=== PATIENT | female | born 1960 | race Caucasian/White ===

== ENCOUNTER 2019-04-18 19:57 | Inpatient (IN) ==
[2019-04-18 21:25] LABS: Mean Corpuscular Hgb Conc 33.1 g/dL (32-36)
[2019-04-18 21:40] LABS: Alanine Aminotransferase 63 U/L (12-78); Albumin Level 3.5 gm/dl (3.4-5.0); Aspartate Aminotransferase 86 U/L (15-37); BUN Creatinine Ratio 11.5 (10-20); Blood Urea Nitrogen 8 mg/dl (7-18); Calcium 9.3 mg/dl (8.5-10.1); Carbon Dioxide 26 mmol/L (21-32); Chloride 105 mmol/L (98-107); Est GFR (African American) 112.9; Est GFR (Non-African American) 97.4; Glucose 162 mg/dl (70-99); Lipase 84 U/L (73-393); Potassium 3.8 mmol/L (3.5-5.1); Sodium 137 mmol/L (136-145)
[2019-04-18 21:43] LABS: Albumin Globulin Ratio 0.7 (0.9-2); Alkaline Phosphatase 194 U/L (45-117); Bilirubin,Total 1.5 mg/dl (0.2-1); Globulin 5.2 gm/dl (2.5-4.0); Total Protein 8.7 gm/dl (6.4-8.2)
[2019-04-18] MEDS ORDERED: METOCLOPRAMIDE HCL INJ 5 MG/ML 2 ML VIAL IV STA (21:43)
[2019-04-18] MEDS ORDERED: GI COCKTAIL ED USE PO ONE (21:43)
[2019-04-18] MEDS ORDERED: DiphenhydrAMINE HCL 50 MG/ML VIAL IV STA ×2 (21:43→23:31)
[2019-04-18] MEDS ORDERED: SODIUM CHLORIDE 0.9% 1000ML 1,000 ML IV SCH (21:45)
[2019-04-18 21:46] LABS: Appearance Urine Clear (Clear); Bacteria Urine Automated Negative (Negative); Bilirubin Urine Negative (Negative); Blood Urine 1+ (Negative); Color Urine Yellow; Epithelial Cell Urine Auto >30 /lpf (0-5); Glucose Urine UA Trace (Negative); Ketones Urine Negative (Negative); Leukocyte Esterase Urine Negative (Negative); Nitrite Urine Negative (Negative); Protein Urine Negative (Negative); Specific Gravity Urine 1.019 (1.000-1.030); Urobilinogen Urine Negative (Negative)
[2019-04-18 21:58] LABS: INR 1.2 (0.9-1.1); Partial Thromboplastin Ratio 1.1; Partial Thromboplastin Time 29.6 Seconds (21.0-31.0); Prothrombin Time 12.1 Seconds (9.0-12.0)
[2019-04-18 22:06] LABS: Anisocytosis Present; Basophils # (auto) 0.02 K/uL (0-0.2); Basophils % (auto) 0.2 %; Echinocytes 1+; Eosinophils # (auto) 0.23 K/uL (0-0.5); Eosinophils % (auto) 1.8 %; Hematocrit (blood only) 37.5 % (37-47); Hemoglobin 12.4 g/dL (12.0-16.0); Immature Granulocytes # (auto) 0.02 K/uL (0.00-0.02); Immature Granulocytes % (auto) 0.2 %; Lymphocytes # (auto) 1.15 K/uL (1.2-3.4); Lymphocytes % (auto) 9.2 %; Mean Corpuscular Hemoglobin 27.1 pg (25-34); Mean Corpuscular Volume 81.9 fL (80-100); Monocytes # (auto) 0.84 K/uL (0.11-0.59); Monocytes % (auto) 6.7 %; Neutrophils # (auto) 10.27 K/uL (1.4-6.5); Neutrophils % (auto) 81.9 %; Platelet Count 103 K/uL (130-400); Platelet Estimate Decreased (Normal); RDW Coefficient of Variation 22.8 % (11.5-14.5); RDW Standard Deviation 67.8 fL (36.4-46.3); Red Blood Count 4.58 M/uL (4.2-5.4); White Blood Count 12.53 K/uL (4.8-10.8)
[2019-04-18 22:07] LABS: Magnesium 1.8 mg/dl (1.8-2.4); Troponin I < 0.015 ng/ml (0-0.045)
--- NOTE | 2019-04-18 22:14 | XRay Report ---
XR chest 1V portable HISTORY: 58 years-old Female n/v, weak acute nausea and vomiting with weakness COMPARISON: None available TECHNIQUE: Normal AP view of the chest FINDINGS: Cardiac silhouette is mildly enlarged. No pneumothorax, large pleural effusion, focal airspace consol idation or overt pulmonary edema. Hazy increased density of the lung bases likely secondary to patien t body habitus. Degenerative changes of the shoulders and spine. ORIF images of the right scapula. IMPRESSION: No acute process. The above report was generated using voice recognition software. It may contain grammatical, syntax o r spelling errors. Electronically signed by: Abimael Bazan M.D. 04/18/2019 10:13 PM
[2019-04-18] MEDS ORDERED: IOVERSOL 100ml IV PRN (22:35)
--- NOTE | 2019-04-18 22:57 | CT Scan Report ---
ABDOMEN AND PELVIS CT WITH IV CONTRAST CT DOSE: 2018.55 mGy.cm HISTORY: Acute mid abdominal pain with nausea and vomiting mid abd pain TECHNIQUE: Multiaxial CT images of the abdomen and pelvis were performed following the IV administrat ion of 93 cc of Optiray 320, A dose lowering technique was utilized adhering to the principles of AL EDGARDO. COMPARISON STUDY: None. FINDINGS: Lung bases are generally clear. No pneumatosis or pneumoperitoneum. The imaged inferior cardiac chamb ers are unremarkable. Spleen is enlarged measuring up to 16 cm in length. Cirrhotic morphology of the liver. No focal hepatic mass lesion or intrahepatic biliary ductal dilation. Moderate distention of the gallbladder. No cholelithiasis, choledocholithiasis or biliary ductal dilation. Pancreas and adre nal glands are unremarkable. Indeterminate intermediate attenuating 1.5 cm lesion of the interpolar r ight kidney, Hounsfield unit of 15. Indeterminate intermediate attenuating 9 mm lesion of the interpo lar left kidney posteriorly with probable cyst of the inferior pole left kidney. No urolith or obstru ctive uropathy. Mild urinary bladder wall thickening. Peripherally calcified 1.2 cm aneurysm of the r ight renal artery is noted on image 170 of series 3. Calcified uterine fibroids. Aorta and IVC are un remarkable. Nonspecific prominent and enlarged periportal and precaval lymph nodes. Upper abdominal varices include periesophageal varices with esophageal wall thickening. Recanalizatio n of the umbilical vein. Mildly dilated fluid-filled loops of small bowel are seen within the upper a bdomen measuring up to 3.2 cm transversely. Nondilated fluid-filled loops of small bowel are seen wit hin the lower abdomen and pelvis. Decompressed distal colon. Mild fecal retention. Terminal ileum and appendix are unremarkable. No transition point identified. As above the mid mesentery. Soft tissues are unremarkable. Bones appear intact. Degenerative changes of the pelvis, spine. IMPRESSION: 1. Prominent and mildly dilated loops of fluid-filled small bowel within the upper abdomen are noted without transition point suggestive of ileus/enteritis with low-grade small bowel obstruction also wi thin the differential. 2. No pneumatosis or pneumoperitoneum. 3. Cirrhotic liver disease with stigmata of portal venous hypertension including periesophageal and u pper abdominal varices with splenomegaly. 4. 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 5. Additional findings as above. Electronically signed by: Abimael Bazan M.D. 04/18/2019 10:56 PM
[2019-04-18] MEDS ORDERED: MoRPHine SULFATE 4 MG/ML 1 ML CARP\\VIAL IV STA (23:31)
--- NOTE | 2019-04-19 01:44 | Emergency Department Note ---
History of Present Illness General Chief complaint: Vomiting Stated complaint: VOMIT FOR 3 HOURS, DEHYDRATION History of Present Illness Maximum Pain Intensity: 6 This 58-year-old presents to the ER complaining of nausea, vomiting and upper abdominal pain who is a history of cirrhosis with varices nonalcoholic Location: Upper abdomen Quality: Uncomfortable Severity: Moderate Duration: One day Timing: One day ago Context: Symptoms persisted and patient came in Modifying factors: better with nothing; worse with activity Patient is in town visiting. She is from the [facility]. Patient denies chest pain, dyspnea, fevers, back pain, diarrhea. Patient states last week she was admitted to [facility] and received blood transfusions. Her platelets were 10,000. Home Medications Home Medications Medication Instructions Recorded Confirmed Type albuterol sulfate [Proventil HFA] 2 puff INHALATION Q4H PRN 04/18/19 04/18/19 History amitriptyline 50 mg PO HS 04/18/19 04/18/19 History cholecalciferol (vitamin D3) 0 unit PO DAILY 04/18/19 04/18/19 History [Vitamin D3] coenzyme Q10 [CoQ-10] 0 mg PO DAILY 04/18/19 04/18/19 History cyanocobalamin (vitamin B-12) 1,000 mcg PO DAILY 04/18/19 04/18/19 History [Vitamin B-12] ferrous sulfate 325 mg PO Q2D 04/18/19 04/18/19 History fluticasone propion-salmeterol 2 puff INHALATION Q12H 04/18/19 04/18/19 History [Advair HFA] fluticasone propionate [Flonase 2 spray INTRANASAL BID PRN 04/18/19 04/18/19 History Allergy Relief] gabapentin See Rx Instructions .ROUTE .COMPLEX 04/18/19 04/18/19 History insulin glargine U-300 conc 20 unit SUBCUT QAM 04/18/19 04/18/19 History [Toujeo SoloStar U-300 Insulin] insulin glargine U-300 conc 45 unit SUBCUT HS 04/18/19 04/18/19 History [Toujeo SoloStar U-300 Insulin] insulin lispro [Humalog KwikPen 50 unit SUBCUT AC 04/18/19 04/18/19 History Insulin] lisinopril 10 mg PO DAILY 04/18/19 04/18/19 History lorazepam 0.5 mg PO BID PRN 04/18/19 04/18/19 History magnesium oxide 800 mg PO BID 04/18/19 04/18/19 History metformin 1,000 mg PO BIDM 04/18/19 04/18/19 History metoclopramide HCl 5 mg PO TID PRN 04/18/19 04/18/19 History nadolol 10 mg PO BID 04/18/19 04/18/19 History pantoprazole 40 mg PO QAM 04/18/19 04/18/19 History polyethylene glycol 3350 17 g PO DAILY PRN 04/18/19 04/18/19 History rosuvastatin 10 mg PO HS 04/18/19 04/18/19 History semaglutide [Ozempic] 1 mg SUBCUT WK 04/18/19 04/18/19 History sucralfate 1 g PO ACHS 04/18/19 04/18/19 History tramadol 50 mg PO BID PRN 04/18/19 04/18/19 History Allergies Allergy/AdvReac Type Severity Reaction Status Date / Time No Known Allergies Allergy Verified 04/18/19 22:17 Past Med/Surg History Medical History Cirrhosis Diabetes High blood pressure Social History Feels Safe at Home: Yes Smoking Status: Former smoker Review of Systems All systems reviewed & are unremarkable except as noted in HPI & below Physical Exam Vital Signs Vital Signs - 24 hr 04/18/19 20:05 04/18/19 21:58 04/18/19 22:45 Temperature 37.0 C Temperature Source Oral Sepsis Recent Fever Within 48 Hours No Sepsis Action Taken by Nursing No Action Required Pulse Rate 118 H Pulse Rate [Apical] 112 H Pulse Rate from SpO2 Sensor Respiratory Rate 20 20 Respiratory Effort / Characteristics Non-Labored Respiratory Depth Normal Blood Pressure 128/84 Blood Pressure [Left Arm] 162/58 H Blood Pressure Mean 98 Blood Pressure Mean [Left Arm] 92 Pulse Oximetry 96 97 97 Oxygen Delivery Method Room Air Room Air Room Air 04/18/19 23:00 04/18/19 23:30 04/19/19 00:00 Temperature Temperature Source Sepsis Recent Fever Within 48 Hours Sepsis Action Taken by Nursing Pulse Rate 147 H 116 H 114 H Pulse Rate [Apical] Pulse Rate from SpO2 Sensor 110 H 116 H 114 H Respiratory Rate 15 17 25 H Respiratory Effort / Characteristics Respiratory Depth Blood Pressure 162/118 H 140/118 H 155/75 H Blood Pressure [Left Arm] Blood Pressure Mean 132 125 101 Blood Pressure Mean [Left Arm] Pulse Oximetry 94 95 95 Oxygen Delivery Method Room Air Room Air Room Air 04/19/19 00:30 04/19/19 01:00 Temperature Temperature Source Sepsis Recent Fever Within 48 Hours Sepsis Action Taken by Nursing Pulse Rate 113 H Pulse Rate [Apical] Pulse Rate from SpO2 Sensor 117 H 113 H Respiratory Rate 23 20 Respiratory Effort / Characteristics Respiratory Depth Blood Pressure 150/73 H 151/77 H Blood Pressure [Left Arm] Blood Pressure Mean 98 101 Blood Pressure Mean [Left Arm] Pulse Oximetry 96 96 Oxygen Delivery Method Room Air Room Air VITALS: Vitals are noted on the nurse's note and reviewed by myself. Vital signs tachycardic GENERAL: White female vomiting, in no acute distress, nondiaphoretic, well- developed well-nourished. SKIN: The skin was without rashes, erythema, edema, or bruising. There is no tenting of the skin. Capillary reflex less than 2 seconds. HEAD: Normocephalic atraumatic. EARS: External auditory canals clear, tympanic membranes pearly burt without erythema or effusion bilaterally. EYES: Pupils equal round and reactive to light and accommodation. Conjunctivae without injection, sclerae without icterus. Extraocular movements intact. NOSE: Patent, turbinates without inflammation or discharge. MOUTH: Mucous membranes moist. Pharynx without erythema or exudate. Uvula midline. Airway patent. Tongue does not deviate. NECK: Supple without nuchal rigidity. No lymphadenopathy. No thyromegaly. Cervical spine is nontender. No JVD. HEART: Regular rate and rhythm LUNGS: Clear to auscultation bilaterally without wheezes, rales or rhonchi. No retractions or accessory muscle use. ABDOMEN: Positive bowel sounds x 4. Normal tympanic percussion. Soft, tender to palpation upper abdomen, without masses or organomegaly. No guarding or rebound tenderness. No CVA tenderness MUSCULOSKELETAL: No muscle atrophy, erythema, or edema noted. NEURO: Patient was alert and oriented to person place and time. Normal sensation to light and sharp touch. No focal neurological deficits. Course Administered Medications Ioversol (Optiray 320 100ml) 93 ml IV ONCE PRN PRN Reason: Interaction Checking Stop: 04/22/19 22:34 Last Admin: 04/18/19 22:35 Dose: 93 ml Documented by: [id number] Discontinued Medications Al Hydrox/Mg Hydrox/Simethicone () 1 dose PO ONE ONE Stop: 04/18/19 21:44 Last Admin: 04/18/19 22:32 Dose: 1 dose Documented by: [id number] Diphenhydramine HCl (Benadryl) 25 mg IV NOW STA Stop: 04/18/19 21:44 Last Admin: 04/18/19 21:56 Dose: 25 mg Documented by: [id number] Diphenhydramine HCl (Benadryl) 12.5 mg IV NOW STA Stop: 04/18/19 23:32 Last Admin: 04/18/19 23:46 Dose: 12.5 mg Documented by: [id number] Sodium Chloride (Nss 1000ml) 1,000 mls @ 999 mls/hr IV .Q1H1M SAI Stop: 04/18/19 22:45 Last Infusion: 04/18/19 23:34 Dose: 0 mls/hr Documented by: [id number] Admin: 04/18/19 21:56 Dose: 999 mls/hr Documented by: [id number] Metoclopramide HCl (Reglan) 10 mg IV NOW STA Stop: 04/18/19 21:44 Last Admin: 04/18/19 21:56 Dose: 10 mg Documented by: [id number] Morphine Sulfate (Morphine Sulfate) 4 mg IV NOW STA Stop: 04/18/19 23:32 Last Admin: 04/18/19 23:44 Dose: 4 mg Documented by: [id number] Medical Decision Making Medical Records Attestation: I reviewed the patient's medical records. Home Medications Current Medication List: was personally reviewed by me Laboratory Data Attestation: I reviewed the patient's lab results. Result diagrams: 04/18/19 21:05 04/18/19 21:05 Lab Results 04/18/19 04/18/19 04/18/19 Range/Units 20:15 21:05 21:05 WBC 12.53 H (4.8-10.8) K/uL RBC 4.58 (4.2-5.4) M/uL Hgb 12.4 (12.0-16.0) g/dL Hct 37.5 (37-47) % MCV 81.9 (80-100) fL MCH 27.1 (25-34) pg MCHC 33.1 (32-36) g/dL RDW Std Deviation 67.8 H (36.4-46.3) fL RDW Coeff of [place] 22.8 H (11.5-14.5) % Plt Count 103 L (130-400) K/uL MPV 10.0 (7.4-10.4) fL Immature Gran % (Auto) 0.2 % Neut % (Auto) 81.9 % Lymph % (Auto) 9.2 % [place] % (Auto) 6.7 % Eos % (Auto) 1.8 % Baso % (Auto) 0.2 % Immature Gran # (Auto) 0.02 (0.00-0.02) K/uL Neut # (Auto) 10.27 H (1.4-6.5) K/uL Lymph # (Auto) 1.15 L (1.2-3.4) K/uL [place] # (Auto) 0.84 H (0.11-0.59) K/uL Eos # (Auto) 0.23 (0-0.5) K/uL Baso # (Auto) 0.02 (0-0.2) K/uL Platelet Estimate Decreased L (Normal) Anisocytosis Present Echinocytes 1+ PT (9.0-12.0) Seconds INR (0.9-1.1) APTT (21.0-31.0) Seconds PTT Ratio Sodium 137 (136-145) mmol/L Potassium 3.8 (3.5-5.1) mmol/L Chloride 105 (98-107) mmol/L Carbon Dioxide 26 (21-32) mmol/L Anion Gap 7.0 (3-11) BUN 8 (7-18) mg/dl Creatinine 0.66 (0.6-1.2) mg/dl Est Cr Clr Drug Dosing Not Reportable Est GFR ( Amer) 112.9 Est GFR (Non-Af Amer) 97.4 BUN/Creatinine Ratio 11.5 (10-20) Glucose 162 H (70-99) mg/dl Calcium 9.3 (8.5-10.1) mg/dl Magnesium 1.8 (1.8-2.4) mg/dl Total Bilirubin 1.5 H (0.2-1) mg/dl AST 86 H (15-37) U/L ALT 63 (12-78) U/L Alkaline Phosphatase 194 H (45-117) U/L Troponin I < 0.015 (0-0.045) ng/ml Total Protein 8.7 H (6.4-8.2) gm/dl Albumin 3.5 (3.4-5.0) gm/dl Globulin 5.2 H (2.5-4.0) gm/dl Albumin/Globulin Ratio 0.7 L (0.9-2) Lipase 84 (73-393) U/L Urine Color Urine Appearance (Clear) Urine pH (4.5-7.5) Ur Specific [place] (1.000-1.030) Urine Protein (Negative) Urine Glucose (UA) (Negative) Urine Ketones (Negative) Urine Blood (Negative) Urine Nitrite (Negative) Urine Bilirubin (Negative) Urine Urobilinogen (Negative) Ur Leukocyte Esterase (Negative) Urine WBC (Auto) (0-5) /hpf Urine RBC (Auto) (0-4) /hpf U Hyaline Cast (Auto) (0-5) /lpf U Epithel Cells (Auto) (0-5) /lpf Urine Bacteria (Auto) (Negative) 04/18/19 04/18/19 Range/Units 21:05 21:05 WBC (4.8-10.8) K/uL RBC (4.2-5.4) M/uL Hgb (12.0-16.0) g/dL Hct (37-47) % MCV (80-100) fL MCH (25-34) pg MCHC (32-36) g/dL RDW Std Deviation (36.4-46.3) fL RDW Coeff of [place] (11.5-14.5) % Plt Count (130-400) K/uL MPV (7.4-10.4) fL Immature Gran % (Auto) % Neut % (Auto) % Lymph % (Auto) % [place] % (Auto) % Eos % (Auto) % Baso % (Auto) % Immature Gran # (Auto) (0.00-0.02) K/uL Neut # (Auto) (1.4-6.5) K/uL Lymph # (Auto) (1.2-3.4) K/uL [place] # (Auto) (0.11-0.59) K/uL Eos # (Auto) (0-0.5) K/uL Baso # (Auto) (0-0.2) K/uL Platelet Estimate (Normal) Anisocytosis Echinocytes PT 12.1 H (9.0-12.0) Seconds INR 1.2 H (0.9-1.1) APTT 29.6 (21.0-31.0) Seconds PTT Ratio 1.1 Sodium (136-145) mmol/L Potassium (3.5-5.1) mmol/L Chloride (98-107) mmol/L Carbon Dioxide (21-32) mmol/L Anion Gap (3-11) BUN (7-18) mg/dl Creatinine (0.6-1.2) mg/dl Est Cr Clr Drug Dosing Est GFR ( Amer) Est GFR (Non-Af Amer) BUN/Creatinine Ratio (10-20) Glucose (70-99) mg/dl Calcium (8.5-10.1) mg/dl Magnesium (1.8-2.4) mg/dl Total Bilirubin (0.2-1) mg/dl AST (15-37) U/L ALT (12-78) U/L Alkaline Phosphatase (45-117) U/L Troponin I (0-0.045) ng/ml Total Protein (6.4-8.2) gm/dl Albumin (3.4-5.0) gm/dl Globulin (2.5-4.0) gm/dl Albumin/Globulin Ratio (0.9-2) Lipase (73-393) U/L Urine Color Yellow Urine Appearance Clear (Clear) Urine pH 7.0 (4.5-7.5) Ur Specific [place] 1.019 (1.000-1.030) Urine Protein Negative (Negative) Urine Glucose (UA) Trace H (Negative) Urine Ketones Negative (Negative) Urine Blood 1+ H (Negative) Urine Nitrite Negative (Negative) Urine Bilirubin Negative (Negative) Urine Urobilinogen Negative (Negative) Ur Leukocyte Esterase Negative (Negative) Urine WBC (Auto) 1-5 (0-5) /hpf Urine RBC (Auto) 5-10 H (0-4) /hpf U Hyaline Cast (Auto) 1-5 (0-5) /lpf U Epithel Cells (Auto) >30 H (0-5) /lpf Urine Bacteria (Auto) Negative (Negative) Imaging Data Attestation: I personally reviewed and interpreted this imaging study as fol lows: MDM Narrative Prior records/ancillary studies reviewed. Triage Nursing notes reviewed. The patient's history was concerning for abdominal pain. Differential diagnosis: Etiologies such as appendicitis, diverticulitis, PUD, biliary pathology, UTI, pancreatitis, obstruction, mesenteric ischemia, aortic pathology, infections, inflammatory bowel disease, renal colic, as well as others were entertained. Physical examination findings: As above. ER treatment provided: IV fluids, Reglan, Benadryl, morphine, Bentyl On reassessment the patient felt better. Diagnostics interpreted by me: ECG: Normal sinus, normal intervals, no acute ST-T wave changes. Impression sinus tachycardia interpreted by myself Ordered for tachycardia I think arrhythmia is unlikely. EKG shows normal sinus rhythm with no interval abnormalities such as QT prolongation or WPW. There are no findings to suggest Brugada syndrome. Cardiac monitoring in the emergency department reveals no tachycardic or bradycardic dysrhythmia. Hypertrophic cardiomyopathy was considered but there are no clear historical elements pointing toward this. EKG is not suggestive. The QRS voltage is not extremely large and there are no suggestive Q waves. The labs revealed leukocytosis, stable H&H Imaging studies: ABDOMEN AND PELVIS CT WITH IV CONTRAST CT DOSE: 2018.55 mGy.cm HISTORY: Acute mid abdominal pain with nausea and vomiting mid abd pain TECHNIQUE: Multiaxial CT images of the abdomen and pelvis were performed following the IV administration of 93 cc of Optiray 320, A dose lowering technique was utilized adhering to the principles of ALARA. COMPARISON STUDY: None. FINDINGS: Lung bases are generally clear. No pneumatosis or pneumoperitoneum. The imaged inferior cardiac chambers are unremarkable. Spleen is enlarged measuring up to 16 cm in length. Cirrhotic morphology of the liver. No focal hepatic mass lesion or intrahepatic biliary ductal dilation. Moderate distention of the gallbladder. No cholelithiasis, choledocholithiasis or biliary ductal dilation. Pancreas and adrenal glands are unremarkable. Indeterminate intermediate attenuating 1.5 cm lesion of the interpolar right kidney, Hounsfield unit of 15. Indeterminate intermediate attenuating 9 mm lesion of the interpolar left kidney posteriorly with probable cyst of the inferior pole left kidney. No urolith or obstructive uropathy. Mild urinary bladder wall thickening. 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 Calcified uterine fibroids. Aorta and IVC are unremarkable. Nonspecific prominent and enlarged periportal and precaval lymph nodes. Upper abdominal varices include periesophageal varices with esophageal wall t hickening. Recanalization of the umbilical vein. Mildly dilated fluid-filled loops of small bowel are seen within the upper abdomen measuring up to 3.2 cm transversely. Nondilated fluid-filled loops of small bowel are seen within the lower abdomen and pelvis. Decompressed distal colon. Mild fecal retention. Terminal ileum and appendix are unremarkable. No transition point identified. As above the mid mesentery. Soft tissues are unremarkable. Bones appear intact. Degenerative changes of the pelvis, spine. IMPRESSION: 1. Prominent and mildly dilated loops of fluid-filled small bowel within the upper abdomen are noted without transition point suggestive of ileus/enteritis with low-grade small bowel obstruction also within the differential. 2. No pneumatosis or pneumoperitoneum. 3. Cirrhotic liver disease with stigmata of portal venous hypertension including periesophageal and upper abdominal varices with splenomegaly. 4. 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 5. Additional findings as above. Electronically signed by: Abimael Bazan M.D. 04/18/2019 10:56 PM XR chest 1V portable HISTORY: 58 years-old Female n/v, weak acute nausea and vomiting with weakness COMPARISON: None available TECHNIQUE: Normal AP view of the chest FINDINGS: Cardiac silhouette is mildly enlarged. No pneumothorax, large pleural effusion, focal airspace consolidation or overt pulmonary edema. Hazy increased density of the lung bases likely secondary to patient body habitus. Degenerative changes of the shoulders and spine. ORIF images of the right scapula. IMPRESSION: No acute process. The above report was generated using voice recognition software. It may contain grammatical, syntax or spelling errors. Electronically signed by: Abimael Bazan M.D. Consultation: A consultation was placed with the hospitalist, Dr. Lee. The case was discussed and diagnostics were reviewed. The patient was evaluated in the ER for further treatment. Exam and history seem consistent with intractable nausea vomiting with possible early bowel obstruction. Patient is agreeable treatment plan of admission. Medicine was consulted. She was medicated as above. She felt slightly better. Records were obtained from [place] and reviewed. This is given to the admitting team. By the evaluation outlined above emergent etiologies such as appendicitis, diverticulitis, PUD, biliary pathology, UTI, pancreatitis, mesenteric ischemia, aortic pathology, infections, inflammatory bowel disease, renal colic, as well as others were deemed relatively unlikely. The pt informed about the findings as listed above. All questions were answered and pleased with the treatment. Case reviewed with my attending The chart was completed utilizing [employer] voice recognition software. Grammatical errors, random word insertions, pronoun errors, and incomplete sentences are an occassional consequence of this system due to software limita tions, ambient noise, and hardware issues. Any formal questions or concerns about the content, text, or information contained within the body of this dictation should be directly addressed to the physician insurance account assistant for clarification. Impression & Plan Intractable vomiting, Abdominal pain Discharge Plan Visit Data Chief Complaint: Vomiting Stated Complaint: VOMIT FOR 3 HOURS, DEHYDRATION ED Provider: Saurav Rivers ED Midlevel Provider: Keli Hess Discharge Problem: Intractable vomiting, Abdominal pain Patient Disposition: Being Evaluated by Hospitalist Condition: Fair Forms Stand Alone Forms: My [facility] Prescriptions Prescriptions: No Action sucralfate 1 gram Tablet 1 g PO ACHS RF: 0 lisinopril 20 mg Tablet 10 mg PO DAILY RF: 0 gabapentin 400 mg Capsule See Rx Instructions .ROUTE .COMPLEX RF: 0 cyanocobalamin (vitamin B-12) [Vitamin B-12] 1,000 mcg Tablet 1,000 mcg PO DAILY RF: 0 tramadol 50 mg Tablet 50 mg PO BID PRN (Reason: Pain, Moderate) RF: 0 amitriptyline 50 mg Tablet 50 mg PO HS RF: 0 nadolol 20 mg Tablet 10 mg PO BID RF: 0 lorazepam 0.5 mg Tablet 0.5 mg PO BID PRN (Reason: Anxiety) RF: 0 pantoprazole 40 mg Tablet,Delayed Release (Dr/Ec) 40 mg PO QAM RF: 0 ferrous sulfate 325 mg (65 mg iron) Tablet 325 mg PO Q2D RF: 0 metformin 1,000 mg Tablet 1,000 mg PO BIDM RF: 0 polyethylene glycol 3350 17 gram/dose Powder 17 g PO DAILY PRN (Reason: Constipation) RF: 0 albuterol sulfate [Proventil HFA] 90 mcg/actuation Hfa Aerosol Inhaler 2 puff INHALATION Q4H PRN (Reason: Shortness Of Breath Or Wheezing) RF: 0 fluticasone propionate [Flonase Allergy Relief] 50 mcg/actuation [place],S uspension 2 spray INTRANASAL BID PRN (Reason: Rhinitis) RF: 0 metoclopramide HCl 10 mg Tablet 5 mg PO TID PRN (Reason: Nausea) RF: 0 cholecalciferol (vitamin D3) [Vitamin D3] 1,000 unit Capsule PO DAILY RF: 0 insulin lispro [Humalog KwikPen Insulin] 100 unit/mL Insulin Pen 50 unit SUBCUT AC RF: 0 rosuvastatin 10 mg Tablet 10 mg PO HS RF: 0 Advair HFA 230-21 mcg/actuation Hfa Aerosol Inhaler 2 puff INHALATION Q12H RF: 0 Toujeo SoloStar U-300 Insulin 300 unit/mL (1.5 mL) Insulin Pen 45 unit SUBCUT HS RF: 0 Toujeo SoloStar U-300 Insulin 300 unit/mL (1.5 mL) Insulin Pen 20 unit SUBCUT QAM RF: 0 Ozempic 1 mg/dose (2 mg/1.5 mL) Pen Injector 1 mg SUBCUT WK RF: 0 magnesium oxide 400 mg magnesium Tablet 800 mg PO BID RF: 0 coenzyme Q10 [CoQ-10] 100 mg Capsule PO DAILY RF: 0 Referrals Referrals: PCP,NO [Primary Care Provider] -
[2019-04-19] MEDS ORDERED: ONDANSETRON INJ 2 MG/ML 2 ML VIAL ONE (02:22)
[2019-04-19] MEDS: TRAMADOL HCL 50 MG TABLET PO PRN ×2 (02:39→09:35)
[2019-04-19] MEDS ORDERED: CARBOHYDRATES FOR HYPOGLYCEMIA PO PRN (03:52)
[2019-04-19] MEDS ORDERED: ALBUTEROL HFA 8 GM INHALER INH PRN (03:52)
[2019-04-19] MEDS ORDERED: FLUTICASONE PROPIONATE NA SPR 16 GM BTL PRN (03:52)
[2019-04-19] MEDS ORDERED: DEXTROSE 50% 50 ML SYRINGE IV PRN (03:52)
[2019-04-19] MEDS ORDERED: GLUCOSE 40% GEL 15 GM TUBE PO PRN (03:52)
[2019-04-19] MEDS ORDERED: MoRPHine SULFATE 2 MG/ML CARP IV PRN (03:52)
[2019-04-19] MEDS ORDERED: GLUCAGON FOR INJ 1 MG VIAL SQ PRN (03:52)
[2019-04-19] MEDS ORDERED: GLUCOSE 10 TABS/TUBE PO PRN (03:52)
[2019-04-19] MEDS ORDERED: Nursing to Pharmacy Communication ONE ×2 (03:57→07:06)
[2019-04-19] MEDS: HEPARIN SOD 5,000 UNIT/0.5 ML VIAL SQ SCH ×3 (05:42→20:17)
[2019-04-19] MEDS ORDERED: INSULIN ASPART 100 UNITS/ML 3 ML PEN SC SCH ×2 (06:00→07:30)
--- NOTE | 2019-04-19 06:00 | History & Physical Report ---
Date of Service April 19, 2019 Assessment & Plan (1) Enteritis: Enteritis versus low-grade small bowel obstruction/intractable nausea, vomiting and abdominal pain- NPO with sips and essential medications. Zofran 4 mg IV every 6 hours PRN. Famotidine 20 mg IV every 12 hours. Tramadol 50 mg p.o. every 6 hours PRN moderate pain. Morphine sulfate 2 mg IV every 4 hours as needed severe pain... Try to minimize. Consult general surgery. 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 Plan will be to address primary issue of enteritis versus low-grade SBO, and return her to her care of her longtime physicians. Present on Admission?: Yes (6) Portal venous hypertension: See above Present on Admission?: Yes (7) Esophageal varices in cirrhosis: See above Present on Admission?: Yes (8) Splenomegaly: See above Present on Admission?: Yes (9) COPD (chronic obstructive pulmonary disease): Continue usual treatment with Proventil HFA, Advair HFA, Flonase. Present on Admission?: Yes (10) Insulin-requiring or dependent type II diabetes mellitus: Hold Toujeo, metformin and Ozempic. Placed on Accu-Cheks before meals and at bedtime with NovoLog coverage per scale. Present on Admission?: Yes (11) Hypertension: Continue nadolol 10 mg p.o. twice daily with hold parameters Present on Admission?: Yes (12) Peripheral neuropathy: Continue amitriptyline and gabapentin when she is able to take p.o. Present on Admission?: Yes (13) Hyperlipidemia: Hold rosuvastatin until able to take p.o. Present on Admission?: Yes (14) Anxiety: Change lorazepam to IV Present on Admission?: Yes (15) B12 deficiency: Hold supplement Present on Admission?: Yes History of Present Illness Chief Complaint: The patient presents to the emergency department with upper abdominal pain, nausea, and vomiting. 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 Patient is presently visiting [place], and reports that she had been hospitalized about 1 and half weeks ago related to her liver dysfunction. She does have a follow-up appointment with her physicians next week. Allergies Allergy/AdvReac Type Severity Reaction Status Date / Time No Known Allergies Allergy Verified 04/18/19 22:17 Home Medications Home Medications Medication Instructions Recorded Confirmed Type albuterol sulfate [Proventil HFA] 2 puff INHALATION Q4H PRN 04/18/19 04/18/19 History amitriptyline 50 mg PO HS 04/18/19 04/18/19 History cholecalciferol (vitamin D3) 0 unit PO DAILY 04/18/19 04/18/19 History [Vitamin D3] coenzyme Q10 [CoQ-10] 0 mg PO DAILY 04/18/19 04/18/19 History cyanocobalamin (vitamin B-12) 1,000 mcg PO DAILY 04/18/19 04/18/19 History [Vitamin B-12] ferrous sulfate 325 mg PO Q2D 04/18/19 04/18/19 History fluticasone propion-salmeterol 2 puff INHALATION Q12H 04/18/19 04/18/19 History [Advair HFA] fluticasone propionate [Flonase 2 spray INTRANASAL BID PRN 04/18/19 04/18/19 H istory Allergy Relief] gabapentin See Rx Instructions .ROUTE .COMPLEX 04/18/19 04/18/19 History insulin glargine U-300 conc 20 unit SUBCUT QAM 04/18/19 04/18/19 History [Toujeo SoloStar U-300 Insulin] insulin glargine U-300 conc 45 unit SUBCUT HS 04/18/19 04/18/19 History [Toujeo SoloStar U-300 Insulin] insulin lispro [Humalog KwikPen 50 unit SUBCUT AC 04/18/19 04/18/19 History Insulin] lisinopril 10 mg PO DAILY 04/18/19 04/18/19 History lorazepam 0.5 mg PO BID PRN 04/18/19 04/18/19 History magnesium oxide 800 mg PO BID 04/18/19 04/18/19 History metformin 1,000 mg PO BIDM 04/18/19 04/18/19 History metoclopramide HCl 5 mg PO TID PRN 04/18/19 04/18/19 History nadolol 10 mg PO BID 04/18/19 04/18/19 History pantoprazole 40 mg PO QAM 04/18/19 04/18/19 History polyethylene glycol 3350 17 g PO DAILY PRN 04/18/19 04/18/19 History rosuvastatin 10 mg PO HS 04/18/19 04/18/19 History semaglutide [Ozempic] 1 mg SUBCUT WK 04/18/19 04/18/19 History sucralfate 1 g PO ACHS 04/18/19 04/18/19 History tramadol 50 mg PO BID PRN 04/18/19 04/18/19 History Past Med/Surg History Medical History Cirrhosis Diabetes High blood pressure Social History Preferred Language: Cymro Communication Ability: Effective 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 Beliefs That Will Affect Care: None Current Living Situation: Spouse and Family Other Information That Helps Us Care for You: No Feels Safe at Home: Yes Safety Concerns: Feels Safe At This Time Smoking Status: Former smoker Hx Alcohol Use: No Hx Substance Use: No Review of Systems Review of Systems: The patient denies chest pain, palpitations, shortness of breath, dyspnea on exertion, cough, lower extremity swelling, sore throat, blood in urine or stool, dysuria, urinary frequency or urgency, lightheadedness, dizziness, headache, memory loss, loss of consciousness, imbalance, focal weakness, numbness or tingling in arms or legs, back or neck pain, or night sweats. The review of systems is otherwise negative other than for that already noted above, and at least 10 systems have been reviewed. Physical Exam Physical Exam: The patient is awake, alert and oriented 3, normocephalic and atraumatic, lying in bed and in mild distress secondary to abdominal pain. HEENT--PERRL, EOMI, mucous membranes and oropharynx dry. Neck--supple. No JVD. No bruits. Thyroid normal, trachea midline, no adenopathy. Heart--normal S1 and S2. No murmurs, rubs or gallops. Lungs--clear bilaterally, no respiratory distress, no accessory muscle use. Abdomen--normal bowel sounds and soft. Nontender. Nondistended. Morbid obesity. Extremities--no cyanosis or clubbing. 1+ bilateral pretibial pitting edema. Dermatologic--normal skin turgor, normal color. Neurologic--cranial nerves II through XII grossly intact. Rheumatologic--exam limited by body habitus Psychiatric--normal affect. Results & Data Vital Signs (Past 12 Hours) Vital Signs Temp Pulse Pulse Resp BP BP BP 04/19/19 03:37 98.2 F 106 H 18 127/73 04/19/19 03:00 107 H 24 168/72 H 04/19/19 02:30 111 H 20 163/59 H 04/19/19 02:00 109 H 17 167/67 H 04/19/19 01:30 110 H 21 141/69 H 04/19/19 01:00 113 H 20 151/77 H 04/19/19 00:30 23 150/73 H 04/19/19 00:00 114 H 25 H 155/75 H 04/18/19 23:30 116 H 17 140/118 H 04/18/19 23:00 147 H 15 162/118 H 04/18/19 22:45 112 H 20 162/58 H 04/18/19 21:58 04/18/19 20:05 98.6 F 118 H 20 128/84 Pulse Ox 04/19/19 03:37 96 04/19/19 03:00 94 04/19/19 02:30 94 04/19/19 02:00 95 04/19/19 01:30 95 04/19/19 01:00 96 04/19/19 00:30 96 04/19/19 00:00 95 04/18/19 23:30 95 04/18/19 23:00 94 04/18/19 22:45 97 04/18/19 21:58 97 04/18/19 20:05 96 Laboratory Results Laboratory Results WBC 12.53 K/uL (4.8-10.8) H 04/18/19 21:05 RBC 4.58 M/uL (4.2-5.4) 04/18/19 21:05 Hgb 12.4 g/dL (12.0-16.0) 04/18/19 21:05 Hct 37.5 % (37-47) 04/18/19 21:05 MCV 81.9 fL (80-100) 04/18/19 21:05 MCH 27.1 pg (25-34) 04/18/19 21:05 MCHC 33.1 g/dL (32-36) 04/18/19:05 RDW Std Deviation 67.8 fL (36.4-46.3) H 04/18/19 21:05 RDW Coeff of [place] 22.8 % (11.5-14.5) H 04/18/19 21:05 Plt Count 103 K/uL (130-400) L 04/18/19 21:05 MPV 10.0 fL (7.4-10.4) 04/18/19 21:05 Immature Gran % (Auto) 0.2 % 04/18/19 21:05 Neut % (Auto) 81.9 % 04/18/19 21:05 Lymph % (Auto) 9.2 % 04/18/19 21:05 [place] % (Auto) 6.7 % 04/18/19 21:05 Eos % (Auto) 1.8 % 04/18/19:05 Baso % (Auto) 0.2 % 04/18/19:05 Immature Gran # (Auto) 0.02 K/uL (0.00-0.02) 04/18/19 21:05 Neut # (Auto) 10.27 K/uL (1.4-6.5) H 04/18/19 21:05 Lymph # (Auto) 1.15 K/uL (1.2-3.4) L 04/18/19 21:05 [place] # (Auto) 0.84 K/uL (0.11-0.59) H 04/18/19 21:05 Eos # (Auto) 0.23 K/uL (0-0.5) 04/18/19 21:05 Baso # (Auto) 0.02 K/uL (0-0.2) 04/18/19 21:05 Platelet Estimate Decreased (Normal) L 04/18/19 21:05 Anisocytosis Present 04/18/19 21:05 Echinocytes 1+ 04/18/19 21:05 PT 12.1 Seconds (9.0-12.0) H 04/18/19 21:05 INR 1.2 (0.9-1.1) H 04/18/19 21:05 APTT 29.6 Seconds (21.0-31.0) 04/18/19 21:05 PTT Ratio 1.1 04/18/19 21:05 Sodium 137 mmol/L (136-145) 04/18/19 21:05 Potassium 3.8 mmol/L (3.5-5.1) 04/18/19 21:05 Chloride 105 mmol/L (98-107) 04/18/19 21:05 Carbon Dioxide 26 mmol/L (21-32) 04/18/19 21:05 Anion Gap 7.0 (3-11) 04/18/19 21:05 BUN 8 mg/dl (7-18) 04/18/19 21:05 Creatinine 0.66 mg/dl (0.6-1.2) 04/18/19 21:05 Est Cr Clr Drug Dosing Not Reportable 04/18/19 21:05 Est GFR ( Amer) 112.9 04/18/19 21:05 Est GFR (Non-Af Amer) 97.4 04/18/19 21:05 BUN/Creatinine Ratio 11.5 (10-20) 04/18/19 21:05 Glucose 162 mg/dl (70-99) H 04/18/19 21:05 POC Glucose 148 (70-99) H 04/19/19 05:30 Calcium 9.3 mg/dl (8.5-10.1) 04/18/19 21:05 Magnesium 1.8 mg/dl (1.8-2.4) 04/18/19 20:15 Total Bilirubin 1.5 mg/dl (0.2-1) H 04/18/19 21:05 AST 86 U/L (15-37) H 04/18/19 21:05 ALT 63 U/L (12-78) 04/18/19 21:05 Alkaline Phosphatase 194 U/L (45-117) H 04/18/19 21:05 Troponin I < 0.015 ng/ml (0-0.045) 04/18/19 20:15 Total Protein 8.7 gm/dl (6.4-8.2) H 04/18/19 21:05 Albumin 3.5 gm/dl (3.4-5.0) 04/18/19 21:05 Globulin 5.2 gm/dl (2.5-4.0) H 04/18/19 21:05 Albumin/Globulin Ratio 0.7 (0.9-2) L 04/18/19 21: Lipase 84 U/L (73-393) 04/18/19 21:05 Urine Color Yellow 04/18/19 21:05 Urine Appearance Clear (Clear) 04/18/19 21:05 Urine pH 7.0 (4.5-7.5) 04/18/19 21:05 Ur Specific [place] 1.019 (1.000-1.030) 04/18/19 21:05 Urine Protein Negative (Negative) 04/18/19 21:05 Urine Glucose (UA) Trace (Negative) H 04/18/19 21:05 Urine Ketones Negative (Negative) 04/18/19 21:05 Urine Blood 1+ (Negative) H 04/18/19 21:05 Urine Nitrite Negative (Negative) 04/18/19 21:05 Urine Bilirubin Negative (Negative) 04/18/19 21:05 Urine Urobilinogen Negative (Negative) 04/18/19 21:05 Ur Leukocyte Esterase Negative (Negative) 04/18/19 21:05 Urine WBC (Auto) 1-5 /hpf (0-5) 04/18/19 21:05 Urine RBC (Auto) 5-10 /hpf (0-4) H 04/18/19 21:05 U Hyaline Cast (Auto) 1-5 /lpf (0-5) 04/18/19 21:05 U Epithel Cells (Auto) >30 /lpf (0-5) H 04/18/19 21:05 Urine Bacteria (Auto) Negative (Negative) 04/18/19 21:05 Diagnostic Findings [facility], [place] [phone] CT Scan Report Patient: CAM PORTILLOmit Date: 04/18/19 MR#: [id number]: [id number] Acct ID:[id number]: [facility]: 1960[facility] Zip: [place] [address] Age: 58Location: ED Sex: F Room/Bed: Att Phy:Diagnosis: VOMIT FOR 3 HOURS, DEHYDRATION Radha Phy: PCP,NOService Date: 04/18/19 Fam Phy:Interpreting Phy: Moisés Bazan Admit Phy: Ordering Phy: Keli Hess .WANDA cc: ~ ABDOMEN AND PELVIS CT WITH IV CONTRAST CT DOSE: 2018.55 mGy.cm HISTORY: Acute mid abdominal pain with nausea and vomiting mid abd pain TECHNIQUE: Multiaxial CT images of the abdomen and pelvis were performed following the IV administration of 93 cc of Optiray 320, A dose lowering technique was utilized adhering to the principles of ALARA. COMPARISON STUDY: None. FINDINGS: Lung bases are generally clear. No pneumatosis or pneumoperitoneum. The imaged inferior cardiac chambers are unremarkable. Spleen is enlarged measuring up to 16 cm in length. Cirrhotic morphology of the liver. No focal hepatic mass lesion or intrahepatic biliary ductal dilation. Moderate distention of the gallbladder. No cholelithiasis, choledocholithiasis or biliary ductal dilation. Pancreas and adrenal glands are unremarkable. Indeterminate intermediate attenuating 1.5 cm lesion of the interpolar right kidney, Hounsfield unit of 15. Indeterminate intermediate attenuating 9 mm lesion of the interpolar left kidney posteriorly with probable cyst of the inferior pole left kidney. No urolith or obstructive uropathy. Mild urinary bladder wall thickening. 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 Calcified uterine fibroids. Aorta and IVC are unremarkable. Nonspecific prominent and enlarged periportal and precaval lymph nodes. Upper abdominal varices include periesophageal varices with esophageal wall thickening. Recanalization of the umbilical vein. Mildly dilated fluid-filled loops of small bowel are seen within the upper abdomen measuring up to 3.2 cm transversely. Nondilated fluid-filled loops of small bowel are seen within the lower abdomen and pelvis. Decompressed distal colon. Mild fecal retention. Terminal ileum and appendix are unremarkable. No transition point identified. As above the mid mesentery. Soft tissues are unremarkable. Bones appear intact. Degenerative changes of the pelvis, spine. IMPRESSION: 1. Prominent and mildly dilated loops of fluid-filled small bowel within the upper abdomen are noted without transition point suggestive of ileus/enteritis with low-grade small bowel obstruction also within the differential. 2. No pneumatosis or pneumoperitoneum. 3. Cirrhotic liver disease with stigmata of portal venous hypertension including periesophageal and upper abdominal varices with splenomegaly. 4. 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 5. Additional findings as above. Electronically signed by: Abimael Bazan M.D. 04/18/2019 10:56 PM Dictated: 04/18/192245 Transcribed: 04/18/192245 [place], [place] [phone] XRay Report Patient: CAM PORTILLO AAdshayne Date: 04/18/19 MR#: [id number]: [id number] Acct ID:[id number]: Date: 1960[facility] Zip: [place] [address] Age: 58Location: ED Sex: F Room/Bed: Att Phy:Diagnosis: VOMIT FOR 3 HOURS, DEHYDRATION Radha Phy: PCP,NOService Date: 04/18/19 Fam Phy:Interpreting Phy: Moisés Bazan Admit Phy: Ordering Phy: Keli Hess .WANDA cc: ~ XR chest 1V portable HISTORY: 58 years-old Female n/v, weak acute nausea and vomiting with weakness COMPARISON: None available TECHNIQUE: Normal AP view of the chest FINDINGS: Cardiac silhouette is mildly enlarged. No pneumothorax, large pleural effusion, focal airspace consolidation or overt pulmonary edema. Hazy increased density of the lung bases likely secondary to patient body habitus. Degenerative changes of the shoulders and spine. ORIF images of the right scapula. IMPRESSION: No acute process. The above report was generated using voice recognition software. It may contain grammatical, syntax or spelling errors. Electronically signed by: Abimael Bazan M.D. 04/18/2019 10:13 PM Dictated: 04/18/192211 Transcribed: 04/18/192211 Code Status & VTE Plan Code Status Full code VTE Prophylaxis Plan VTE Prophylaxis will be ordered: Yes PG Care Time/CCT Total # of Minutes Spent Total Time Spent with Patient: Total time spent is greater than 50% in coordination of care (as documented) at patient's floor/unit and/or counseling patient:
--- NOTE | 2019-04-19 07:12 | Surgery Consultation ---
Date of Consultation April 19, 2019 Assessment & Plan (1) Enteritis: Patient is admitted with nausea vomiting and abdominal pain she appears to be more enteritis than Bowel obstruction-he has very mildly dilated small bowel with mild thickening and no transition point He does have evidence of cirrhosis with portal hypertension and associated varices It does not appear she requires surgical intervention, we will try her on some clear liquids Continue with rehydration and monitor her electrolytes History of Present Illness Attending Physician: Denilson Beatty MD Asked to see the patient with possible partial small bowel obstruction but more likely enteritis She presented to the emergency room with nausea vomiting and upper abdominal pain Appears to be dehydrated weakness/fatigue Patient was recently admitted to [facility] in [place] with severe thrombocytopenia platelet count of 9000 He required medication and transfusion, current platelet count is 103,000 She also has a history of nonalcoholic cirrhosis portal hypertension and varices Allergies Allergy/AdvReac Type Severity Reaction Status Date / Time No Known Allergies Allergy Verified 04/18/19 22:17 Home Medications Home Medications Medication Instructions Recorded Confirmed Type albuterol sulfate [Proventil HFA] 2 puff INHALATION Q4H PRN 04/18/19 04/18/19 History amitriptyline 50 mg PO HS 04/18/19 04/18/19 History cholecalciferol (vitamin D3) 0 unit PO DAILY 04/18/19 04/18/19 History [Vitamin D3] coenzyme Q10 [CoQ-10] 0 mg PO DAILY 04/18/19 04/18/19 History cyanocobalamin (vitamin B-12) 1,000 mcg PO DAILY 04/18/19 04/18/19 History [Vitamin B-12] ferrous sulfate 325 mg PO Q2D 04/18/19 04/18/19 History fluticasone propion-salmeterol 2 puff INHALATION Q12H 04/18/19 04/18/19 History [Advair HFA] fluticasone propionate [Flonase 2 spray INTRANASAL BID PRN 04/18/19 04/18/19 History Allergy Relief] gabapentin See Rx Instructions .ROUTE .COMPLEX 04/18/19 04/18/19 History insulin glargine U-300 conc 20 unit SUBCUT QAM 04/18/19 04/18/19 History [Toumelindao SoloStar U-300 Insulin] insulin glargine U-300 conc 45 unit SUBCUT HS 04/18/19 04/18/19 History [Toudev[place] AmbrizoStar U-300 Insulin] insulin lispro [Humalog KwikPen 50 unit SUBCUT AC 04/18/19 04/18/19 History Insulin] lisinopril 10 mg PO DAILY 04/18/19 04/18/19 History lorazepam 0.5 mg PO BID PRN 04/18/19 04/18/19 History magnesium oxide 800 mg PO BID 04/18/19 04/18/19 History metformin 1,000 mg PO BIDM 04/18/19 04/18/19 History metoclopramide HCl 5 mg PO TID PRN 04/18/19 04/18/19 History nadolol 10 mg PO BID 04/18/19 04/18/19 History pantoprazole 40 mg PO QAM 04/18/19 04/18/19 History polyethylene glycol 3350 17 g PO DAILY PRN 04/18/19 04/18/19 History rosuvastatin 10 mg PO HS 04/18/19 04/18/19 History semaglutide [Ozempic] 1 mg SUBCUT WK 04/18/19 04/18/19 History sucralfate 1 g PO ACHS 04/18/19 04/18/19 History tramadol 50 mg PO BID PRN 04/18/19 04/18/19 History Patient History Medical History Cirrhosis Diabetes High blood pressure Social History Preferred Language: Slovenian Communication Ability: Effective 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 Beliefs That Will Affect Care: None Current Living Situation: Spouse and Family Other Information That Helps Us Care for You: No Feels Safe at Home: Yes Safety Concerns: Feels Safe At This Time Smoking Status: Former smoker Hx Alcohol Use: No Hx Substance Use: No Review of Systems Review of Systems: All systems reviewed & are unremarkable except as noted in HPI & below Physical Exam Physical Exam: Patient is in her hospital bed, she is in no distress, her vital signs are stable Her abdomen is soft she does have bowel sounds she says she has some discomfort in the right upper abdomen Constitutional: well developed and well nourished; no acute distress Eyes: + anicteric sclerae Respiratory: normal respiratory effort; no respiratory distress Cardiovascular: Rate/Rhythm: regular rate Gastrointestinal (Abdomen): Percussion/Palpation: abdomen soft Skin: no rashes, warm and dry Neurologic: awake Psychiatric: Orientation: alert Results & Data Vital Signs (Past 12 Hours) Vital Signs Temp Pulse Pulse Resp BP BP BP 04/19/19 03:37 36.8 C 106 H 18 127/73 04/19/19 03:00 107 H 24 168/72 H 04/19/19 02:30 111 H 20 163/59 H 04/19/19 02:00 109 H 17 167/67 H 04/19/19 01:30 110 H 21 141/69 H 04/19/19 01:00 113 H 20 151/77 H 04/19/19 00:30 23 150/73 H 04/19/19 00:00 114 H 25 H 155/75 H 04/18/19 23:30 116 H 17 140/118 H 04/18/19 23:00 147 H 15 162/118 H 04/18/19 22:45 112 H 20 162/58 H 04/18/19 21:58 04/18/19 20:05 37.0 C 118 H 20 128/84 Pulse Ox 04/19/19 03:37 96 04/19/19 03:00 94 04/19/19 02:30 94 04/19/19 02:00 95 04/19/19 01:30 95 04/19/19 01:00 96 04/19/19 00:30 96 04/19/19 00:00 95 04/18/19 23:30 95 04/18/19 23:00 94 04/18/19 22:45 97 04/18/19 21:58 97 04/18/19 20:05 96 I did review her CAT scan PG Care Time/CCT Total # of Minutes Spent Total Time Spent with Patient: Total time spent is greater than 50% in coordination of care (as documented) at patient's floor/unit and/or counseling patient:
[2019-04-19] MEDS: D5NSS + 20MEQ KCL 20 MEQ/1,000 ML BAG IV SCH ×2 (07:56→16:47)
[2019-04-19] MEDS: NADOLOL 40 MG TAB PO SCH ×2 (07:56→20:17)
[2019-04-19] MEDS: FLUTICASONE/SALMETEROL 250/50 (ADVAIR) 14 PUFF/1 INHALER INH SCH ×2 (07:57→20:16)
[2019-04-19 08:35] LABS: Hemoglobin 10.1 g/dL (12.0-16.0); Mean Corpuscular Hemoglobin 26.6 pg (25-34); Mean Corpuscular Hgb Conc 32.6 g/dL (32-36); Mean Corpuscular Volume 81.6 fL (80-100); RDW Coefficient of Variation 22.9 % (11.5-14.5); RDW Standard Deviation 68.1 fL (36.4-46.3); White Blood Count 7.73 K/uL (4.8-10.8)
[2019-04-19] MEDS: PANTOprazole 40 MG TAB PO SCH (08:35)
[2019-04-19] MEDS: INSULIN ASPART 100 UNITS/ML 3 ML PEN SC SCH ×6 (08:36→20:17)
[2019-04-19 08:38] LABS: Mean Platelet Volume 8.7 fL (7.4-10.4); Platelet Count 66 K/uL (130-400)
[2019-04-19 09:00] LABS: Albumin Level 2.9 gm/dl (3.4-5.0); BUN Creatinine Ratio 16.7 (10-20); Calcium 8.5 mg/dl (8.5-10.1); Creatinine Clr Calc Pharmacy 149.3 ml/min; Est GFR (African American) 121.3; Est GFR (Non-African American) 104.7; Potassium 3.6 mmol/L (3.5-5.1)
[2019-04-19 09:08] LABS: Albumin Globulin Ratio 0.7 (0.9-2); Bilirubin,Total 1.8 mg/dl (0.2-1); Globulin 4.3 gm/dl (2.5-4.0); Total Protein 7.2 gm/dl (6.4-8.2)
[2019-04-19 09:09] LABS: Anisocytosis Present; Basophils # (auto) 0.02 K/uL (0-0.2); Basophils % (auto) 0.3 %; Eosinophils # (auto) 0.22 K/uL (0-0.5); Eosinophils % (auto) 2.8 %; Immature Granulocytes # (auto) 0.01 K/uL (0.00-0.02); Immature Granulocytes % (auto) 0.1 %; Lymphocytes % (auto) 19.4 %; Monocytes # (auto) 0.58 K/uL (0.11-0.59); Monocytes % (auto) 7.5 %; Neutrophils % (auto) 69.9 %
[2019-04-19] MEDS ORDERED: LORazepam 0.5 MG TAB PO PRN (13:00)
[2019-04-19] MEDS: GABAPENTIN 400 MG CAP PO SCH (13:50)
[2019-04-19] MEDS: DiphenhydrAMINE HCL 50 MG/ML VIAL IV PRN ×2 (13:50→21:02)
[2019-04-19] MEDS: ONDANSETRON INJ 2 MG/ML 2 ML VIAL IV PRN (16:47)
[2019-04-19 17:42] LABS: Hematocrit (blood only) 31.7 % (37-47); Mean Corpuscular Hemoglobin 26.2 pg (25-34); Mean Corpuscular Hgb Conc 31.5 g/dL (32-36); RDW Standard Deviation 69.2 fL (36.4-46.3); Red Blood Count 3.82 M/uL (4.2-5.4); White Blood Count 5.98 K/uL (4.8-10.8)
[2019-04-19 17:52] LABS: Mean Platelet Volume 9.1 fL (7.4-10.4); Platelet Count 73 K/uL (130-400)
[2019-04-19 18:09] LABS: Albumin Level 2.8 gm/dl (3.4-5.0); BUN Creatinine Ratio 14.1 (10-20); Calcium 8.2 mg/dl (8.5-10.1); Creatinine Clr Calc Pharmacy 138.8 ml/min; Est GFR (African American) 118.4; Est GFR (Non-African American) 102.2; Potassium 3.7 mmol/L (3.5-5.1)
[2019-04-19 18:12] LABS: Albumin Globulin Ratio 0.7 (0.9-2); Bilirubin,Total 1.8 mg/dl (0.2-1); Globulin 4.3 gm/dl (2.5-4.0); Total Protein 7.1 gm/dl (6.4-8.2)
[2019-04-19 18:14] LABS: Basophils # (auto) 0.02 K/uL (0-0.2); Basophils % (auto) 0.3 %; Eosinophils # (auto) 0.34 K/uL (0-0.5); Eosinophils % (auto) 5.7 %; Immature Granulocytes # (auto) 0.01 K/uL (0.00-0.02); Immature Granulocytes % (auto) 0.2 %; Lymphocytes # (auto) 1.57 K/uL (1.2-3.4); Lymphocytes % (auto) 26.3 %; Monocytes # (auto) 0.54 K/uL (0.11-0.59); Neutrophils % (auto) 58.5 %; Polychromasia 1+; Tear Drop Cells 1+
[2019-04-19] MEDS ORDERED: GABAPENTIN 800 MG TAB PO SCH (21:00)
[2019-04-19] MEDS ORDERED: AMITRIPTYLINE HCL 50 MG TAB PO SCH (21:00)
--- NOTE | 2019-04-19 23:16 | Hospitalist Progress Note ---
Date of Service April 19, 2019 Assessment & Plan (1) Enteritis: Enteritis versus low-grade small bowel obstruction/intractable nausea, vomiting and abdominal pain Advancing diet to full liquid as per surgery Zofran 4 mg IV every 6 hours PRN. Famotidine 20 mg IV every 12 hours. Tramadol 50 mg p.o. every 6 hours PRN moderate pain. Would avoid NG tube unless critical given esophageal varices. Stool culture added but given lack of diarrhea suspect more ileus than viral/bacterial gastroenteritis Appreciate general surgery recommendations (2) Small bowel obstruction: See above (3) Intractable nausea and vomiting: See above (4) Abdominal pain: Lipase 84 - no pancreatitis. Gall bladder distended and will closely monitor bilirubin, however ALP trending down and does not appear to be infected on CT. WBC normalized without antibiotics. No CBD dilatation. Appendix not inflamed. 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 No prior ascites. Will continue to monitor plt and LFTs for acute decompensation. Plan will be to address primary issue of enteritis versus low-grade SBO, and return her to her care of her longtime physicians. (6) Portal venous hypertension: See above (7) Esophageal varices in cirrhosis: Avoid NG tube. Monitor Hgb on heparin SQ. (8) Splenomegaly: See above (9) COPD (chronic obstructive pulmonary disease): Continue usual treatment with Proventil HFA, Advair HFA, Flonase. No current exacerbation (10) Insulin-requiring or dependent type II diabetes mellitus: Hold Toujeo, metformin and Ozempic. BSG relatively well controlled without any of these. Would discontinue Ozempic on discharge and re-introduce it as outpatient if felt ok to go back on this. Placed on Accu-Cheks before meals and at bedtime with NovoLog coverage per scale. No need for basal insulin at present (11) Hypertension: Suspected medications due to portal hypertension rather than systemic. Continue nadolol 10 mg p.o. twice daily with hold parameters (12) Peripheral neuropathy: Restarted amitriptyline and gabapentin as patient reports she gets a lot of pain without these. (13) Hyperlipidemia: Hold rosuvastatin, not critical medication at this time. (14) Anxiety: lorazepam to IV (15) B12 deficiency: Hold supplement, not critical medication. (16) DVT prophylaxis: Recent need for blood transfusions but no active bleeding and platelets > 50. Will continue heparin 5000 units Q8H Subjective Reviewed recent history with patient and consistent with H&P from earlier in day. Reports improving appetite/vomiting - although requiring anti-emetics this is not unusual for her. Review of Systems Review of Systems: All systems reviewed & are unremarkable except as noted in HPI & below Physical Exam Constitutional: well developed and + morbidly obese; no acute distress Eyes: + anicteric sclerae Respiratory: normal respiratory effort, lungs clear to auscultation Cardiovascular: RRR, no murmur, no edema Gastrointestinal (Abdomen): Inspection/Auscultation: normal bowel sounds Percussion/Palpation: + abdomen tender (generalized, worse RUQ) and abdomen soft; no guarding and abdomen not rigid Musculoskeletal: no cyanosis or clubbing, extremities motor strength 5/5 Skin: no rashes, warm and dry Neurologic: awake; no focal motor deficits Psychiatric: A+Ox3, euthymic affect Results & Data Vital Signs (Past 12 Hours) Vital Signs Temp Pulse Pulse Resp BP BP Pulse Ox 04/19/19 19:00 97.5 F L 86 20 168/88 H 95 04/19/19 16:00 82 04/19/19 15:51 97.9 F 93 H 12 153/76 H 90 PG Care Time/CCT Total # of Minutes Spent Total Time Spent with Patient: Total time spent is greater than 50% in coordination of care (as documented) at patient's floor/unit and/or counseling patient: (1) Hyperlipidemia Hyperlipidemia type: unspecified Qualified Code(s): E78.5 - Hyperlipidemia, unspecified (2) Peripheral neuropathy Peripheral neuropathy type: polyneuropathy associated with underlying disease Qualified Code(s): G63 - Polyneuropathy in diseases classified elsewhere (3) COPD (chronic obstructive pulmonary disease) COPD type: unspecified COPD Qualified Code(s): J44.9 - Chronic obstructive pulmonary disease, unspecified (4) Abdominal pain Abdominal location: generalized Qualified Code(s): R10.84 - Generalized abd ominal pain (5) Hypertension Hypertension type: essential hypertension Qualified Code(s): I10 - Essential (primary) hypertension
[2019-04-20] MEDS: D5NSS + 20MEQ KCL 20 MEQ/1,000 ML BAG IV SCH (02:54)
[2019-04-20] MEDS: HEPARIN SOD 5,000 UNIT/0.5 ML VIAL SQ SCH (05:11)
[2019-04-20 05:57] LABS: Hematocrit (blood only) 32.2 % (37-47); Hemoglobin 10.1 g/dL (12.0-16.0); Mean Corpuscular Hemoglobin 26.4 pg (25-34); Mean Corpuscular Hgb Conc 31.4 g/dL (32-36); Mean Corpuscular Volume 84.3 fL (80-100); Red Blood Count 3.82 M/uL (4.2-5.4); White Blood Count 5.66 K/uL (4.8-10.8)
[2019-04-20] MEDS: GABAPENTIN 400 MG CAP PO SCH ×2 (05:58→11:34)
[2019-04-20 05:59] LABS: Mean Platelet Volume 8.9 fL (7.4-10.4); Platelet Count 72 K/uL (130-400)
[2019-04-20 06:21] LABS: Anisocytosis Present; Basophils # (auto) 0.02 K/uL (0-0.2); Basophils % (auto) 0.4 %; Eosinophils # (auto) 0.48 K/uL (0-0.5); Eosinophils % (auto) 8.5 %; Lymphocytes # (auto) 1.53 K/uL (1.2-3.4); Monocytes # (auto) 0.67 K/uL (0.11-0.59); Monocytes % (auto) 11.8 %; Neutrophils # (auto) 2.96 K/uL (1.4-6.5); Neutrophils % (auto) 52.3 %
[2019-04-20 06:38] LABS: Albumin Level 2.6 gm/dl (3.4-5.0); BUN Creatinine Ratio 9.9 (10-20); Creatinine Clr Calc Pharmacy 123.6 ml/min; Est GFR (Non-African American) 98.4; Potassium 4.1 mmol/L (3.5-5.1)
[2019-04-20 06:41] LABS: Albumin Globulin Ratio 0.6 (0.9-2); Bilirubin,Total 1.5 mg/dl (0.2-1); Globulin 4.3 gm/dl (2.5-4.0); Phosphorus 3.8 mg/dl (2.5-4.9); Total Protein 6.9 gm/dl (6.4-8.2)
--- NOTE | 2019-04-20 07:24 | Progress Note ---
Date of Service April 20, 2019 Assessment & Plan (1) Intractable nausea and vomiting: pt tolerating full liquids and passing flatus- no Vomiting she wishes to be d/c home- to f/u with her usual doctors including GI who plan on banding additional varices I do not think she requires surgical intervention or additional studies which may even cause a setback OK for d/c home to f/u with her usual doctors from surgical standpoint Results & Data Vital Signs (Past 12 Hours) Vital Signs Temp Pulse Resp BP Pulse Ox 04/19/19 23:29 36.6 C 76 18 125/60 94 PG Care Time/CCT Total # of Minutes Spent Total Time Spent with Patient: Total time spent is greater than 50% in coordination of care (as documented) at patient's floor/unit and/or counseling patient:
[2019-04-20] MEDS: INSULIN ASPART 100 UNITS/ML 3 ML PEN SC SCH ×2 (08:35→11:34)
[2019-04-20] MEDS: NADOLOL 40 MG TAB PO SCH (08:36)
[2019-04-20] MEDS: FLUTICASONE/SALMETEROL 250/50 (ADVAIR) 14 PUFF/1 INHALER INH SCH (08:36)
[2019-04-20] MEDS: PANTOprazole 40 MG TAB PO SCH (08:36)
[2019-04-20] MEDS ORDERED: PANTOprazole 40 MG TAB PO SCH (09:00)
[2019-04-20] MEDS ORDERED: POLYETHYLENE (MIRALAX) 17 GM PACK PO SCH (09:45)
[2019-04-20] MEDS: ONDANSETRON INJ 2 MG/ML 2 ML VIAL IV PRN (11:33)
--- NOTE | 2019-04-20 12:16 | Discharge Summary ---
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 Patient is presently visiting [place], and reports that she had been hospitalized about 1 and half weeks ago related to her liver dysfunction. She does have a follow-up appointment with her physicians next week. Admission Exam Per Admitting Provider The patient is awake, alert and oriented 3, normocephalic and atraumatic, lying in bed and in mild distress secondary to abdominal pain. HEENT--PERRL, EOMI, mucous membranes and oropharynx dry. Neck--supple. No JVD. No bruits. Thyroid normal, trachea midline, no adenopathy. Heart--normal S1 and S2. No murmurs, rubs or gallops. Lungs--clear bilaterally, no respiratory distress, no accessory muscle use. Abdomen--normal bowel sounds and soft. Nontender. Nondistended. Morbid obesity. Extremities--no cyanosis or clubbing. 1+ bilateral pretibial pitting edema. Dermatologic--normal skin turgor, normal color. Neurologic--cranial nerves II through XII grossly intact. Rheumatologic--exam limited by body habitus Psychiatric--normal affect. Principal Diagnosis Low grade small bowel obstruction Enteritis Discharge Exam Constitutional well developed and + morbidly obese; no acute distress Eyes + anicteric sclerae Respiratory normal respiratory effort, lungs clear to auscultation Cardiovascular RRR, no murmur, no edema Gastrointestinal (Abdomen) Inspection/Auscultation: normal bowel sounds Percussion/Palpation: + abdomen tender (mild, improving) and abdomen soft; no guarding and abdomen not rigid Musculoskeletal no cyanosis or clubbing, extremities motor strength 5/5 Skin no rashes, warm and dry Neurologic awake; no focal motor deficits Psychiatric A+Ox3, euthymic affect Discharge Data Allergies Allergy/AdvReac Type Severity Reaction Status Date / Time No Known Allergies Allergy Verified 04/18/19 22:17 Consultations 04/18/19 23:31 ED Decision to Admit Stat 04/19/19 03:52 Consult Case Management - Discharge Planning Routine Consult General Surgery Routine Ordered Studies 04/18/19 21:43 CT abd pelvis IV con only Stat TECHNIQUE: Multiaxial CT images of the abdomen and pelvis were performed following the IV administration of 93 cc of Optiray 320, A dose lowering technique was utilized adhering to the principles of ALARA. COMPARISON STUDY: None. FINDINGS: Lung bases are generally clear. No pneumatosis or pneumoperitoneum. The imaged inferior cardiac chambers are unremarkable. Spleen is enlarged measuring up to 16 cm in length. Cirrhotic morphology of the liver. No focal hepatic mass lesion or intrahepatic biliary ductal dilation. Moderate distention of the gallbladder. No cholelithiasis, choledocholithiasis or biliary ductal dilation. Pancreas and adrenal glands are unremarkable. Indeterminate intermediate attenuating 1.5 cm lesion of the interpolar right kidney, Hounsfield unit of 15. Indeterminate intermediate attenuating 9 mm lesion of the interpolar left kidney posteriorly with probable cyst of the inferior pole left kidney. No urolith or obstructive uropathy. Mild urinary bladder wall thickening. 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 Calcified uterine fibroids. Aorta and IVC are unremarkable. Nonspecific prominent and enlarged periportal and precaval lymph nodes. Upper abdominal varices include periesophageal varices with esophageal wall thickening. Recanalization of the umbilical vein. Mildly dilated fluid-filled loops of small bowel are seen within the upper abdomen measuring up to 3.2 cm transversely. Nondilated fluid-filled loops of small bowel are seen within the lower abdomen and pelvis. Decompressed distal colon. Mild fecal retention. Terminal ileum and appendix are unremarkable. No transition point identified. As above the mid mesentery. Soft tissues are unremarkable. Bones appear intact. Degenerative changes of the pelvis, spine. IMPRESSION: 1. Prominent and mildly dilated loops of fluid-filled small bowel within the upper abdomen are noted without transition point suggestive of ileus/enteritis with low-grade small bowel obstruction also within the differential. 2. No pneumatosis or pneumoperitoneum. 3. Cirrhotic liver disease with stigmata of portal venous hypertension including periesophageal and upper abdominal varices with splenomegaly. 4. 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 5. Additional findings as above. Hospital Course (1) Enteritis: Enteritis versus low-grade small bowel obstruction/intractable nausea, vomiting and abdominal pain Now tolerating full liquid diet and requesting to be discharged. Will follow up with her car sweeper in [place]. Ondansetron prescribed to help with nausea. No stool culture taken as no bowel movement but passing flatus. (2) Small bowel obstruction: See above (3) Insulin-requiring or dependent type II diabetes mellitus: No Toujeo required while admitted due to reduced oral intake. Recommend taking half Toujeo dose until her diet is more regular. Recommend only taking Ozempic if diet is back to normal. (4) Intractable nausea and vomiting: See above (5) Abdominal pain: Lipase 84 - no pancreatitis. Gall bladder distended and will closely monitor bilirubin, however ALP trending down and does not appear to be infected on CT. WBC normalized without antibiotics. No CBD dilatation. Appendix not inflamed. 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 No prior ascites. LFTs trending down. Plts/INR/Hgb stable Follow up with regular car sweeper in [place] (7) Portal venous hypertension: (8) Esophageal varices in cirrhosis: (9) Splenomegaly: (10) COPD (chronic obstructive pulmonary disease): (11) Hypertension: (12) Peripheral neuropathy: (13) Hyperlipidemia: (14) Anxiety: (15) B12 deficiency: Total Time Total Time Spent Total Time Spent (In Minutes): 40 Discharge Plan Discharge Items Patient Disposition: Home - Self-Care Reason For Visit: ENTERITIS, LOW GRADE SBO Discharge Diagnosis: Enteritis Low grade small bowel obstruction Condition on Discharge: Fair Activity: Resume your previous activity Non-emergency contact: Primary Care Provider Call non-emergency contact if: you have any medication questions and your symptoms worsen Follow-up/Referrals: PCP,NO [Primary Care Provider] - Diet: Carb Consistent or DM2 Diet Texture: Pureed (blended smooth) Diet Comment: as below Addtl Attending Provider Instructions: You were diagnosed with enteritis and low grade small bowel obstruction. This is resolving with IV fluids and bowel rest. Recommend continuing full liquid diet on discharge and slowly advance diet every 24 hour to soft foods, bite sized foods then regular diet. You have not required any Toujeo while admitted to control your glucose levels. Recommend taking half you normal dose until you diet gets back to regular. Otherwise no changes to your medications were made. Ondansetron was prescribed to help with nausea. Please follow up with your primary care provider and car sweeper as previously arranged. Pending Studies at Discharge: No Stand-Alone Forms: [facility] Medications and DC Order Prescriptions: New ondansetron 4 mg tablet,disintegrating 4 mg PO Q6H PRN (Reason: nausea and vomiting) Qty: 20 RF: 0 Continued sucralfate 1 gram Tablet 1 g PO ACHS RF: 0 lisinopril 20 mg Tablet 10 mg PO DAILY RF: 0 gabapentin 400 mg Capsule See Rx Instructions .ROUTE .COMPLEX RF: 0 cyanocobalamin (vitamin B-12) [Vitamin B-12] 1,000 mcg Tablet 1,000 mcg PO DAILY RF: 0 tramadol 50 mg Tablet 50 mg PO BID PRN (Reason: Pain, Moderate) RF: 0 amitriptyline 50 mg Tablet 50 mg PO HS RF: 0 nadolol 20 mg Tablet 10 mg PO BID RF: 0 lorazepam 0.5 mg Tablet 0.5 mg PO BID PRN (Reason: Anxiety) RF: 0 pantoprazole 40 mg Tablet,Delayed Release (Dr/Ec) 40 mg PO QAM RF: 0 ferrous sulfate 325 mg (65 mg iron) Tablet 325 mg PO Q2D RF: 0 metformin 1,000 mg Tablet 1,000 mg PO BIDM RF: 0 polyethylene glycol 3350 17 gram/dose Powder 17 g PO DAILY PRN (Reason: Constipation) RF: 0 albuterol sulfate [Proventil HFA] 90 mcg/actuation Hfa Aerosol Inhaler 2 puff INHALATION Q4H PRN (Reason: Shortness Of Breath Or Wheezing) RF: 0 fluticasone propionate [Flonase Allergy Relief] 50 mcg/actuation [place],Suspension 2 spray INTRANASAL BID PRN (Reason: Rhinitis) RF: 0 metoclopramide HCl 10 mg Tablet 5 mg PO TID PRN (Reason: Nausea) RF: 0 cholecalciferol (vitamin D3) [Vitamin D3] 1,000 unit Capsule PO DAILY RF: 0 insulin lispro [Humalog KwikPen Insulin] 100 unit/mL Insulin Pen 50 unit SUBCUT AC RF: 0 rosuvastatin 10 mg Tablet 10 mg PO HS RF: 0 Advair HFA 230-21 mcg/actuation Hfa Aerosol Inhaler 2 puff INHALATION Q12H RF: 0 Toujeo SoloStar U-300 Insulin 300 unit/mL (1.5 mL) Insulin Pen 45 unit SUBCUT HS RF: 0 Toujeo SoloStar U-300 Insulin 300 unit/mL (1.5 mL) Insulin Pen 20 unit SUBCUT QAM RF: 0 Ozempic 1 mg/dose (2 mg/1.5 mL) Pen Injector 1 mg SUBCUT WK RF: 0 magnesium oxide 400 mg magnesium Tablet 800 mg PO BID RF: 0 coenzyme Q10 [CoQ-10] 100 mg Capsule PO DAILY RF: 0 Discharge Orders: Discharge Order (Routine); Ordered 04/20/19 Ordered By: [place] Admission Data Admit Date/Time: 04/19/19 02:20 Attending Provider: [place] Admit Provider: Denilson Beatty Primary Care Provider: PCP,NO Other Providers: Jack Taveras Other Interventions: Discharge Summary Assessment (RN) Last Done: 04/20/19 11:15 DC Date/Time DO NOT enter until pt leaves facility: 04/20/19 12:55
[2019-04-20] MEDS ORDERED: HEPARIN SOD 5,000 UNIT/0.5 ML VIAL SQ SCH (20:00)
== END 2019-04-20 12:55 | disposition home or self-care (01) | DRG 392 ==
LOC: ED 19:57 → SUATTDRO 04-19 02:20 → 2N 04-19 02:20